=== PATIENT | female | born 1935 | race Two or more races ===

== ENCOUNTER 2017-08-10 21:04 | Inpatient (IN) | payer MEDICAID, MEDICARE ==
[~2017-08-10] VITALS: Ht 157.5 cm; Wt 57.6 kg
--- NOTE | 2017-08-10 21:06 | NUR ---
PT BIBA#81 FROM [facility] FOR AGITATION AND PER FAMILY MORE ALTERED THAN NORMAL. PT EYES OPEN, NONVERBAL. PT CONNECTED TO VENT WITH PRESCRIBED SETTINGS: AC 12 TV 550 FI02 30% PEEP 5. NO SOB NOTED. NAD NOTED. NO NVD AT THIS TIME. PT GOWNED AND PLACED ON MONITOR. PT NOTED WITH GTUBE INTACT AND PATENT. NO S/S INFECTION OR INFILTRATION NOTED. NO RESIDUAL NOTED. WOUNDS NOTED TO DICK POST KNEE. DR. WOMACK AT BEDSIDE FOR EVAL.
[2017-08-10] MEDS ORDERED: IV NS 0.9% 1,000 ML BAG IV ONE ×2 (21:30→22:30)
--- NOTE | 2017-08-10 21:42 | NUR ---
LAB AT BEDSIDE FOR BLOOD DRAW
[2017-08-10 21:46] LABS: BASOPHILS # (AUTO) 0.1 /CMM (0.0-0.2); BASOPHILS % (AUTO) 0.8 % (0.0-2.0); EOSINOPHILS # (AUTO) 0.2 /CMM (0.0-0.7); EOSINOPHILS % (AUTO) 2.3 % (0.0-6.0); HEMATOCRIT 32 % (33-45); HEMOGLOBIN 10.6 g/dL (11.5-14.8); LYMPHOCYTES # (AUTO) 3.7 /CMM (0.8-4.8); LYMPHOCYTES % (AUTO) 35.6 % (20.0-44.0); MEAN CORPUSCULAR HEMOGLOBIN 31 PG (26.0-33.0); MEAN CORPUSCULAR HGB CONC 33 g/dl (31.0-36.0); MEAN CORPUSCULAR VOLUME 93 fL (82-100); MONOCYTES # (AUTO) 0.6 /CMM (0.1-1.30); MONOCYTES % (AUTO) 6.2 % (2.0-12.0); NEUTROPHILS # (AUTO) 5.7 /CMM (1.8-8.9); NEUTROPHILS % (AUTO) 55.1 % (43.0-81.0); PLATELET COUNT (AUTO) 363 /CMM (150-450); RDW COEFFICIENT OF VARIATION 15.4 (11.5-15.0); RED BLOOD CELL COUNT(AUTO) 3.44 MIL/uL (4.0-5.2); WHITE BLOOD COUNT (AUTO) 10.3 K/uL (4.3-11.0)
--- NOTE | 2017-08-10 21:49 | NUR ---
RADIOLOGY AT BEDSIDE FOR CXR
--- NOTE | 2017-08-10 21:50 | NUR ---
FAMILY AT BEDSIDE
[2017-08-10 21:54] LABS: APPEARANCE,URINE CLEAR (CLEAR); BILIRUBIN,URINE NEGATIVE (NEGATIVE); BLOOD, URINE NEGATIVE Ery/uL (NEGATIVE); COLOR,URINE YELLOW (YELLOW); KETONES,URINE NEGATIVE (NEGATIVE); LEUKOCYTE ESTERASE ,URINE TRACE (NEGATIVE); NITRITE, URINE NEGATIVE (NEGATIVE); PROTEIN,URINE NEGATIVE (NEGATIVE); UGLUCOSE NEGATIVE (NEGATIVE); UROBILINOGEN,URINE 0.2 EU/dL (0.2)
--- NOTE | 2017-08-10 22:05 | NUR ---
CALLED [facility] RUDOLPH PAUL STATES "PER DAUGHTER CALLED 911, PT ON SEROQUEL ROUTINE, PT WAS STABLE THROUGHOUT IRMA, AT 8:40PM AND BEGAN TO REMOVE GOWN. PRN ATIVAN 0.5 MG GT GIVEN AT 6:30PM PER SNF, DAUGHTER REFUSED SEROQUEL AND SIGNED AMA"
[2017-08-10 22:12] LABS: ALANINE AMINOTRANSFERASE 28 U/L (12-78); ALBUMIN 2.9 g/dL (3.4-5.0); ALKALINE PHOSPHATASE 146 U/L (46-116); ASPARTATE AMINOTRANSFERASE 20 U/L (15-37); BILIRUBIN,DIRECT 0.1 mg/dL (0.0-0.2); BILIRUBIN,TOTAL 0.2 mg/dL (0.2-1.0); CALCIUM, SERUM 9.8 mg/dL (8.5-10.1); CARBON DIOXIDE 30 mmol/L (21-32); CHLORIDE 102 mmol/L (98-107); CREATININE 0.6 mg/dL (0.6-1.3); GLUCOSE 109 mg/dL (74-106); POTASSIUM 3.8 mmol/L (3.5-5.1); SODIUM SERUM 139 mmol/L (136-145); TOTAL PROTEIN, SERUM 8.6 g/dL (6.4-8.2); UREA NITROGEN, BLOOD 16 mg/dL (7-18)
[2017-08-10 22:14] LABS: TROPONIN I < 0.017 ng/mL (0.00-0.056)
[2017-08-10] MEDS ORDERED: ACETAMINOPHEN 650 MG/20.3 ML UDC PO ONE (22:30)
[2017-08-10 22:32] LABS: INR 1.02 (0.87-1.13)
[2017-08-10] MEDS ORDERED: ACETAMINOPHEN 650 MG/20.3 ML UDC ONE (22:39)
[2017-08-10 22:49] LABS: BACTERIA,URINE None seen /HPF (None Seen); RBC,URINE NONE SEEN /HPF (0-2); SQUAMOUS EPITHELIAL CELL,UR Rare /HPF (None Seen); WBC,URINE 0-2 /HPF (0-3)
[2017-08-10 23:11] VITALS: BP 75/52
--- NOTE | 2017-08-10 23:32 | NUR ---
DR. BRAND AT BEDSIDE SPEAKING TO PT FMAILY REGARDING RESULTS
[2017-08-10] MEDS ORDERED: QUETIAPINE FUMARATE 25 MG TABLET ONE (23:55)
[2017-08-11] VITALS (7 sets, daily range): BP systolic 115–149; BP diastolic 28–93
[2017-08-11] MEDS ORDERED: QUETIAPINE FUMARATE 100 MG TABLET GT SCH
--- NOTE | 2017-08-11 00:04 | NUR ---
RECTAL TEMP NOTED 98.9. AWARE
--- NOTE | 2017-08-11 00:05 | NUR ---
PT ASSIGNED TO 103 T
--- NOTE | 2017-08-11 00:29 | NUR ---
REPORT GIVEN TO RUDOLPH MANCINI FOR ESDRAS.
[2017-08-11] MEDS ORDERED: ONDANSETRON HCL/PF 4 MG/2 ML VIAL IVP PRN (00:30)
[2017-08-11] MEDS ORDERED: Z GUARD REMEDY 2 OZ OINT TP PRN (00:30)
[2017-08-11] MEDS ORDERED: MAGNESIUM HYDROXIDE 30 ML UDC PO PRN (00:30)
[2017-08-11] MEDS ORDERED: LEVO25TA7 GT (00:33)
[2017-08-11] MEDS ORDERED: SIME80TA15 GT (00:33)
[2017-08-11] MEDS ORDERED: FURO20TA4 GT (00:33)
[2017-08-11] MEDS ORDERED: NITR0.4T48 SL (00:33)
[2017-08-11] MEDS ORDERED: ONDA4TAB5 GT (00:33)
[2017-08-11] MEDS ORDERED: ASPI-605 GT (00:33)
[2017-08-11] MEDS ORDERED: NYST5ORA PO (00:33)
--- NOTE | 2017-08-11 00:49 | NUR ---
PT TRANSFERRED PER [facility]S PROT[employer]OL.
--- NOTE | 2017-08-11 01:00 | NUR ---
RN OPENING NOTES RECEIVED PATIENT FORM ER. PATIENT IS ON VENTILATOR, NON VERBAL. DAUGHTER PRESENT AT BEDSIDE. PATIENT IS RESTLESS AND AGITATED. VS STABLE. RESPIRATIONS EVEN AND UNLABORED. NO SOB NOTED. BS X4. IV ACCESS ON LEFT FA PATENT AND INTACT, NO REDNESS OR INFILTRATION NOTED.WAITING FOR MD ORDERS. BED IN LOW AND LOCKED POSITION, SIDE RAILS X2. CALL LIGHT WITHIN EASY REACH. WILL CONTINUE TO MONITOR AND ASSESS DURING THE SHIFT.
--- NOTE | 2017-08-11 01:35 | NUR ---
RT NOTE PATIENT RECEIVED IN STABLE CONDITION ON MECHANICAL VENT. PATIENT IS TOLERATING CURRENT SETTINGS WITHOUT RESPIRATORY DISTRESS NOTED. TRACH IS PATENT AND SECURE. MECHANICAL VENT IS PLUGGED INTO RED OUTLET. ALARMS ARE SET AND AUDIBLE. AMBU BAG AND BACK UP TRACH ARE AT PATIENT BEDSIDE. WILL CONTINUE TO MONITOR. Addendum: 08/11/17 at 0600 by DANG JURADO RT Amended: Links added.
--- NOTE | 2017-08-11 02:00 | NUR ---
RN NOTES PATIENT IS RESTLESS AND AGITATED. CALLED TIAT BOND AND OBTAINED AN ORDER OF ATIVAN 0.5 MG IV Q6 HRS PRN. WILL CONTINUE TO MONITOR.
[2017-08-11] MEDS: LORAZEPAM INJ 2 MG/ML VIAL IV PRN ×2 (02:22→10:56)
[2017-08-11] MEDS ORDERED: LORAZEPAM INJ 2 MG/ML VIAL IV ONE (04:00)
[2017-08-11] MEDS ORDERED: FIBERSOURCE HN 1,000 ML BOTTLE GT PRN (04:00)
[2017-08-11 06:20] LABS: BASOPHILS % (AUTO) 0.3 % (0.0-2.0); EOSINOPHILS # (AUTO) 0.2 /CMM (0.0-0.7); EOSINOPHILS % (AUTO) 1.6 % (0.0-6.0); HEMATOCRIT 29 % (33-45); HEMOGLOBIN 9.7 g/dL (11.5-14.8); LYMPHOCYTES # (AUTO) 2.2 /CMM (0.8-4.8); LYMPHOCYTES % (AUTO) 21.4 % (20.0-44.0); MEAN CORPUSCULAR HEMOGLOBIN 32 PG (26.0-33.0); MEAN CORPUSCULAR HGB CONC 34 g/dl (31.0-36.0); MEAN CORPUSCULAR VOLUME 94 fL (82-100); MONOCYTES # (AUTO) 0.6 /CMM (0.1-1.30); NEUTROPHILS # (AUTO) 7.3 /CMM (1.8-8.9); NEUTROPHILS % (AUTO) 70.7 % (43.0-81.0); PLATELET COUNT (AUTO) 313 /CMM (150-450); RDW COEFFICIENT OF VARIATION 15.9 (11.5-15.0); RED BLOOD CELL COUNT(AUTO) 3.06 MIL/uL (4.0-5.2); WHITE BLOOD COUNT (AUTO) 10.3 K/uL (4.3-11.0)
[2017-08-11 06:35] LABS: CALCIUM, SERUM 8.6 mg/dL (8.5-10.1); CARBON DIOXIDE 25 mmol/L (21-32); CHLORIDE 107 mmol/L (98-107); CREATININE 0.6 mg/dL (0.6-1.3); GLUCOSE 90 mg/dL (74-106); MAGNESIUM 1.9 mg/dL (1.8-2.4); PHOSPHORUS 3.1 mg/dL (2.5-4.9); POTASSIUM 3.3 mmol/L (3.5-5.1); SODIUM SERUM 143 mmol/L (136-145); UREA NITROGEN, BLOOD 12 mg/dL (7-18)
[2017-08-11 06:48] LABS: CHOLESTEROL 133 mg/dL (<200); HDL CHOLESTEROL 35 mg/dL (40-60); LDL 79 mg/dL (0-99); THYROID STIMULATING HORMONE 0.797 uIU/mL (0.358-3.74); TRIGLYCERIDES 159 mg/dL (30-150)
--- NOTE | 2017-08-11 07:30 | NUR ---
LIMNOLOGY TEACHER AM NOTES PATIENT IN BED, NON VERBAL, DAUGHTER PRESENT AT BEDSIDE . TRACH TO MECHANICAL VENT, SETTING S ORDERED, WELL TOLERATED, RESPIRATIONS EVEN AND UNLABORED. NO SOB NOTED. TELEMETRY READS SR HR 99, NO SIGNS OF PAIN OR DISCOMFORT, LFA G 18 IV ACCESS ON LEFT FA, FLUSHES WELL, SITE CLEAR, FIBERSOURCE FEEDING RUNNING AT 40 ML/HR, 0 RESIDUAL, SEE NURSING FLOWSHEET FOR SKIN ISSUES, PATIENT IS ON RESTRAINT TO BOTH WRIST BUT REMOVED BY DAUGHTER AT THIS TIME, BED IN LOW AND LOCKED POSITION, SIDE RAILS X2. CALL LIGHT WITHIN EASY REACH. WILL CONTINUE TO MONITOR.
--- NOTE | 2017-08-11 07:30 | NUR ---
RN CLOSING NOTES PATIENT IS IN BED, DAUGHTER PRESENT AT BEDSIDE . PATIENT IS ON VENTILATOR, VS STABLE. RESPIRATIONS EVEN AND UNLABORED. NO SOB NOTED. IV ACCESS ON LEFT FA PATENT AND INTACT, NO REDNESS OR INFILTRATION NOTED. FIBERSOURCE FEEDING RUNNING AT 40 ML/HR. BED IN LOW AND LOCKED POSITION, SIDE RAILS X2. CALL LIGHT WITHIN EASY REACH. WILL ENDORSE TO RN DAY SHIFT FOR ESDRAS.
[2017-08-11] MEDS ORDERED: LANS30CA54 GT (07:56)
[2017-08-11] MEDS ORDERED: DEXT15DR6 EACHEYE (07:56)
[2017-08-11] MEDS ORDERED: ENOX60DI SQ (07:56)
[2017-08-11] MEDS ORDERED: LACT-96 GT (07:56)
[2017-08-11] MEDS ORDERED: BUSP10TA35 GT (07:56)
[2017-08-11] MEDS ORDERED: LORA0.5T GT (07:56)
[2017-08-11] MEDS ORDERED: ENOXAPARIN SODIUM 40 MG/0.4 ML DISP.SYRIN SQ SCH (09:00)
--- NOTE | 2017-08-11 09:16 | NUR ---
RN "ISRAEL" WILL CALL BACK WHEN PT READY.
--- NOTE | 2017-08-11 09:30 | NUR ---
MS RN NOTES DUE MEDS GIVEN
--- NOTE | 2017-08-11 10:00 | NUR ---
MS RN NOTES ACCOMPANIED PATIENT TO CT SCAN.
--- NOTE | 2017-08-11 10:31 | NUR ---
SUPERVISOR ROLLER SHOP NOTES PATIENT PLACED ON TELEMETRY. SINUS RHYTHM HR 99.
[2017-08-11] MEDS ORDERED: NITROGLYCERIN 0.4 MG/TAB BOTTLE SL PRN (11:30)
[2017-08-11] MEDS ORDERED: LORAZEPAM 0.5 MG TABLET GT PRN (11:30)
[2017-08-11] MEDS: busPIRone 5 MG TABLET GT SCH ×2 (12:34→17:38)
[2017-08-11] MEDS: NYSTATIN (PYXIS) 500,000 UNIT/5 ML ORAL.SUSP PO SCH ×3 (12:34→20:13)
[2017-08-11] MEDS: clonazePAM 1 MG TABLET PO SCH ×2 (15:01→17:38)
--- NOTE | 2017-08-11 17:40 | NUR ---
RT NOTE: PATIENT RECEIVED WITH TRACH ON LTV VENT. ALARMS VERIFIED AND AUDIBLE. SUCTIONED AND LAVAGED MODERATE AMOUNT OF THICK [place] SECRETIONS. VENT PLUGGED INTO RED OUTLET. AMBU BAG AT HOB
--- NOTE | 2017-08-11 18:49 | NUR ---
BED CONTROL SPECIALIST CLOSING NOTES PATIENT IN BED, NON VERBAL, DAUGHTER PRESENT AT BEDSIDE . SHILEY 8 TRACH TO MECHANICAL VENT, SETTING S ORDERED, WELL TOLERATED, RESPIRATIONS EVEN AND UNLABORED. NO SOB NOTED. TELEMETRY READS SR HR 88, NO SIGNS OF PAIN OR DISCOMFORT, LFA G 18 IV ACCESS ON LEFT FA, FLUSHES WELL, SITE CLEAR, FIBERSOURCE FEEDING RUNNING AT 55 ML/HR, 0 RESIDUAL, PATIENT IS ON RESTRAINT TO BOTH WRIST BUT REMOVED BY DAUGHTER AT THIS TIME, BED IN LOW AND LOCKED POSITION, SIDE RAILS X2. CALL LIGHT WITHIN EASY REACH. ALL NEEDS MET, TURNED AND REPOSITIONED Q 2HOURS. DAUGHTER REFUSED PM CARE. NO OTHER SIGNIFICANT CHANGE IN CONDITION. WILL ENDORSE TO NEXT SHIFT FOR ESDRAS.
--- NOTE | 2017-08-11 19:35 | NUR ---
TOPOGRAPHICAL FIELD ASSISTANT INITIAL NOTES PT IS IN BED NON VERBAL WITH DAUGHTER AT BEDSIDE.PT IS ON TRACH TOLERATING VENT SETTINGS WELL. NO SIGNS OF SOB OR DISTRESS. NO SIGNS OF PAIN OR DISCOMFORT AT THIS TIME. G-TUBE IS INTACT WITH FIBERSOURCE AT 55ML/HR. NO RESIDUAL NOTES AT THIS TIME. PT HAS BILATERAL RESTRAINTS BUT CURRENTLY REMOVED DUE TO DAUGHTER AT BEDSIDE. BED IS IN LOW AND LOCKED POSITION, CALL LIGHT WITHIN REACH. WILL CONTINUE TO MONITOR PT
--- NOTE | 2017-08-11 20:03 | NUR ---
PATIENT RECEIVED WITH TRACH ON LTV VENT. ALARMS VERIFIED AND AUDIBLE. SUCTIONED AND LAVAGED MODERATE AMOUNT OF THICK [place]ER[place]T SECRETIONS. VENT PLUGGED INTO RED OUTLET. AMBU BAG AT HOB Addendum: 08/11/17 at 2002 by SAVANNAH MAYORGA RT Amended: Links added.
[2017-08-11] MEDS ORDERED: ENOXAPARIN SODIUM 60 MG/0.6 ML DISP.SYRIN SQ SCH (21:00)
[2017-08-11] MEDS: QUETIAPINE FUMARATE 100 MG TABLET PO SCH (22:31)
[2017-08-11] MEDS: MAG HYDROX/AL HYDROX/SIMETH 30 ML UDC PO PRN (22:33)
[2017-08-11] MEDS: ACETAMINOPHEN 325 MG TABLET PO PRN (22:41)
[2017-08-12] VITALS (9 sets, daily range): BP systolic 110–131; BP diastolic 50–71
[2017-08-12] MEDS: FIBERSOURCE HN 1,000 ML BOTTLE GT PRN (03:45)
[2017-08-12] MEDS: LEVOTHYROXINE SODIUM 25 MCG TABLET GT SCH (05:08)
[2017-08-12] MEDS: ACETAMINOPHEN 325 MG TABLET PO PRN (05:15)
--- NOTE | 2017-08-12 06:15 | NUR ---
DIRECTORY CLERK CLOSING NOTES PT IS IN BED RESTING, PT DOES GET ANXIOUS AT TIMES. RESTRAINTS ARE OFF AT THIS TIME. PT IS SLEEPING. [facility] TOLERATING WELL. GTUBE FEEDING IS RUNNING AT 55 ML/HR. BULLARD CATHETER IS INTACT WITH 200 ML DRAINED. BED IS IN LOW AND LOCKED POSITION, WILL ENDORSE TO DAYSHIFT
--- NOTE | 2017-08-12 07:30 | NUR ---
CRNP AM NOTES PATIENT IN BED, NON VERBAL, DAUGHTER PRESENT AT BEDSIDE . SHILEY 8 TRACH TO MECHANICAL VENT, SETTINGS ORDERED, WELL TOLERATED, RESPIRATIONS EVEN AND UNLABORED. NO SOB NOTED. TELEMETRY READS SR HR 91, NO SIGNS OF PAIN OR DISCOMFORT, LFA G 18 IV ACCESS ON LEFT FA, FLUSHES WELL, SITE CLEAR, FIBERSOURCE FEEDING RUNNING AT 55 ML/HR, 0 RESIDUAL, PATIENT APPEARS CALM AT THIS TIME, BED IN LOW AND LOCKED POSITION, SIDE RAILS X2. CALL LIGHT WITHIN EASY REACH. ALL NEEDS ANTICIPATED, WILL TURN AND REPOSITION Q 2HOURS. WILL CONTINUE TO MONITOR.
[2017-08-12] MEDS: busPIRone 5 MG TABLET GT SCH ×3 (09:21→16:32)
[2017-08-12] MEDS: ASPIRIN EC 81 MG TABLET.DR PO SCH (09:21)
[2017-08-12] MEDS: clonazePAM 1 MG TABLET PO SCH ×2 (09:21→13:09)
[2017-08-12] MEDS: FUROSEMIDE 20 MG TABLET GT SCH (09:21)
[2017-08-12] MEDS: NYSTATIN (PYXIS) 500,000 UNIT/5 ML ORAL.SUSP PO SCH ×4 (09:21→21:02)
[2017-08-12] MEDS: ENOXAPARIN SODIUM 40 MG/0.4 ML DISP.SYRIN SQ SCH (09:22)
--- NOTE | 2017-08-12 09:30 | NUR ---
GERIATRIC PSYCHIATRIST NOTES DUE MEDS GIVEN.
--- NOTE | 2017-08-12 11:45 | NUR ---
WOUND CARE CONSULT: PT FOLLOWED BY SURGICAL TEAM FOR WOUND CARE. DEFER TO SURGICAL TEAM FOR WOUND TREATMENT PLAN. FIRST STEP MATTRESS ORDERED. ALL SKIN PROTECTION MEASURES IN PLACE AND DISCUSSED WITH NURSING STAFF. MD IN AGREEMENT WITH PLAN OF CARE.
--- NOTE | 2017-08-12 16:10 | NUR ---
RUBY DEVELOPER NOTES DR. JENNIFER YOUNG NOTIFIED ABOUT BLOOD TINGED URINE IN BULLARD CATH. ALSO PER DAUGHTER PT C/O ABDOMINAL PAIN.
--- NOTE | 2017-08-12 16:30 | NUR ---
WARP KNITTER NOTES PER DR JENNIFER YOUNG TO GIVE MORPHINE 1 MG Q3 HOURS PRN, NO OTHER NEW ORDERS.
[2017-08-12] MEDS: HYDROMORPHONE INJ 0.5 MG/0.5 ML SYRINGE IV PRN ×2 (16:48→20:59)
--- NOTE | 2017-08-12 18:30 | NUR ---
MEN'S GARMENT FITTER CLOSING NOTES PATIENT IN BED, NON VERBAL, DAUGHTER PRESENT AT BEDSIDE . SHILEY 8 TRACH TO MECHANICAL VENT, SETTING S ORDERED, WELL TOLERATED, RESPIRATIONS EVEN AND UNLABORED. NO SOB NOTED. TELEMETRY READS SR HR 90, NO SIGNS OF PAIN OR DISCOMFORT, LFA G 18 IV ACCESS, FLUSHES WELL, SITE CLEAR,FIBERSOURCE FEEDING RUNNING AT 55 ML/HR, 0 RESIDUAL, PATIENT APPEARS CALM AT THIS TIME, BED IN LOW AND LOCKED POSITION, SIDE RAILS X2. CALL LIGHT WITHIN EASY REACH. ALL NEEDS MET, TURNED AND REPOSITIONED Q 2HOURS. PM CARE DONE. NO OTHER SIGNIFICANT CHANGE IN CONDITION. WILL ENDORSE TO NEXT SHIFT FOR ESDRAS.
--- NOTE | 2017-08-12 19:30 | NUR ---
RN INITIAL NOTES RECEIVED PT AWAKE ON BED, NON-VERBAL, ABLE TO FOLLOW SIMPLE COMMANDS. DAUGHTER IS AT BEDSIDE. ON VENT WITH SETTINGS AC 12, TV 550, FIO2 30%, PEEP 5, SHILEY 8, SATURATING WELL, NO S/S OF RESP DISTRESS. CURRENTLY SR ON THE MONITOR, HR 80'S. ON GTUBE FEEDING OF FIBERSOURCE @ 55MLS/HR, NO RESIDUALS. BULLARD CATH INTACT, HEMATURIA NOTED, MD AWARE PER DAY RN. LEFT FOREARM 18G FLUSHED AND PATENT, NO S/S OF INFILTRATION/INFECTION, DRESSING CDI. BED LOW AND LOCKED, SIDERAILS UP, CALL LIGHT WITHIN REACH, BED ALARM ON. WILL CONTINUE TO MONITOR
[2017-08-12] MEDS: QUETIAPINE FUMARATE 100 MG TABLET PO SCH (21:02)
[2017-08-12] MEDS: clonazePAM 1 MG TABLET GT SCH (21:02)
[2017-08-13] VITALS: BP 127/53
[2017-08-13] MEDS: FIBERSOURCE HN 1,000 ML BOTTLE GT PRN (00:23)
[2017-08-13] MEDS: HYDROMORPHONE INJ 0.5 MG/0.5 ML SYRINGE IV PRN ×2 (00:23→15:33)
--- NOTE | 2017-08-13 03:48 | NUR ---
RT Pt trach on [facility] vent on ordered settings. no resp distress noted during the shift. sx prn. trach secure and patent. Addendum: 08/13/17 at 0349 by REFUGIO BARRETT RT Amended: Links added.
[2017-08-13 04:00] VITALS: BP 124/54
[2017-08-13] MEDS: LEVOTHYROXINE SODIUM 25 MCG TABLET GT SCH (05:12)
[2017-08-13] MEDS: clonazePAM 1 MG TABLET GT SCH ×3 (05:12→22:00)
--- NOTE | 2017-08-13 06:20 | NUR ---
RN CLOSING NOTES PT REMAINS STABLE OF THE MOMENT. ALL DUE MEDS GIVEN, AM CARE PROVIDED. WILL ENDORSE ESDRAS TO AM RN
[2017-08-13 06:27] LABS: BASOPHILS % (AUTO) 0.4 % (0.0-2.0); EOSINOPHILS # (AUTO) 0.3 /CMM (0.0-0.7); EOSINOPHILS % (AUTO) 3.3 % (0.0-6.0); HEMATOCRIT 26 % (33-45); HEMOGLOBIN 8.9 g/dL (11.5-14.8); LYMPHOCYTES # (AUTO) 2.7 /CMM (0.8-4.8); LYMPHOCYTES % (AUTO) 30.5 % (20.0-44.0); MEAN CORPUSCULAR HEMOGLOBIN 32 PG (26.0-33.0); MEAN CORPUSCULAR HGB CONC 34 g/dl (31.0-36.0); MEAN CORPUSCULAR VOLUME 95 fL (82-100); MONOCYTES # (AUTO) 0.7 /CMM (0.1-1.30); MONOCYTES % (AUTO) 7.5 % (2.0-12.0); NEUTROPHILS # (AUTO) 5.1 /CMM (1.8-8.9); NEUTROPHILS % (AUTO) 58.3 % (43.0-81.0); PLATELET COUNT (AUTO) 251 /CMM (150-450); RDW COEFFICIENT OF VARIATION 15.9 (11.5-15.0); RED BLOOD CELL COUNT(AUTO) 2.78 MIL/uL (4.0-5.2); WHITE BLOOD COUNT (AUTO) 8.7 K/uL (4.3-11.0)
[2017-08-13 06:56] LABS: CALCIUM, SERUM 8.3 mg/dL (8.5-10.1); CARBON DIOXIDE 29 mmol/L (21-32); CHLORIDE 106 mmol/L (98-107); CREATININE 0.6 mg/dL (0.6-1.3); GLUCOSE 127 mg/dL (74-106); POTASSIUM 4.1 mmol/L (3.5-5.1); SODIUM SERUM 141 mmol/L (136-145); UREA NITROGEN, BLOOD 20 mg/dL (7-18)
[2017-08-13 08:00] VITALS: BP 132/65
--- NOTE | 2017-08-13 08:35 | NUR ---
PLACED PT ON SIMV MODE AD ORDERED BY DR RIOJAS. PT JAVIER WELL AT THIS TIME. PT ANXIOUS RN AWARE. PT DOES NOT HAVE SOB/RESP DISTRESS . JAVIER SIMV MODE WELL. WILL CONTINUE TO MONITOR. Addendum: 08/13/17 at 1637 by DOMINGO PATTERSON RT Amended: Links added.
[2017-08-13] MEDS: busPIRone 5 MG TABLET GT SCH ×3 (08:38→17:20)
[2017-08-13] MEDS: ASPIRIN EC 81 MG TABLET.DR PO SCH (08:38)
[2017-08-13] MEDS: FUROSEMIDE 20 MG TABLET GT SCH (08:38)
[2017-08-13] MEDS: NYSTATIN (PYXIS) 500,000 UNIT/5 ML ORAL.SUSP PO SCH ×4 (08:38→21:59)
[2017-08-13] MEDS: ENOXAPARIN SODIUM 40 MG/0.4 ML DISP.SYRIN SQ SCH (08:45)
--- NOTE | 2017-08-13 09:57 | NUR ---
RN INITIAL NOTES RECEIVED PT AWAKE ON BED, NON-VERBAL, ABLE TO FOLLOW SIMPLE COMMANDS. PT ON VENT WITH SETTINGS AC 12, TV 550, FIO2 30%, PEEP 5, SHILEY 8, SATURATING WELL IN AM , PT NOW ON BIPAP , NO S/S OF RESP DISTRESS. CURRENTLY SR ON THE MONITOR, HR 80'S. ON GTUBE FEEDING FIBERSOURCE @ 55MLS/HR, NO RESIDUALS. BULLARD CATH INTACT, LEFT FOREARM 18G FLUSHED AND PATENT, NO S/S OF INFILTRATION/INFECTION, DRESSING CDI. BED LOW AND LOCKED, SIDERAILS UP, CALL LIGHT WITHIN REACH, BED ALARM ON. RN WILL CONTINUE TO MONITOR THROUGH OUT THE DAY
--- NOTE | 2017-08-13 10:00 | NUR ---
VENT CHANGES MADE. PLACED PT ON CPAP MODE ORDERED BY DR RIOJAS. PT JAVIER WELL AT THIS TIME. NOTIFIED RN OF CHANGES. WILL DO ABG TO F/U ORDERED BY . WILL CONTINUE TO MONITOR. Addendum: 08/13/17 at 1637 by DOMINGO PATTERSON RT Amended: Links added.
[2017-08-13 11:38] LABS: ABG BASE EXCESS 4.2 mmol/L; ABG PCO2 41.9 mmHg (35.0-45.0); ABG PH 7.452 (7.350-7.450); ABG PO2 67.5 mmHg (75.0-100.0); AaDO2 97.2 mmHg; COHb 0.2 % (0.5-1.5); MetHb 0.2 % (0.0-1.5); O2Hb 92.6 % (94.0-97.0); SITE, ABG Right Radial
[2017-08-13 12:00] VITALS: BP 153/77
[2017-08-13] MEDS: SIMETHICONE 80 MG TAB.CHEW GT PRN ×2 (12:06→22:00)
[2017-08-13] MEDS: ACETAMINOPHEN 325 MG TABLET PO PRN ×2 (12:07→22:00)
--- NOTE | 2017-08-13 12:20 | NUR ---
VENT CHANGES MADE. PLACED PT BACK ON SIMV MODE ORDERED BY DR RIOJAS. PT JAVIER WELL AT THIS TIME. NOTIFIED RN OF CHANGES. WILL CONTINUE TO MONITOR. Addendum: 08/13/17 at 1637 by DOMINGO PATTERSON RT Amended: Links added.
[2017-08-13 16:00] VITALS: BP 152/84
--- NOTE | 2017-08-13 16:29 | NUR ---
RECEIVED PT TRACHED ON MECHANICAL VENTILATOR ON NOTED SETTINGS PER MD. VENT PLUGGED INTO RED OUTLET. AMBU BAG AT BEDSIDE. ALARMS ARE SET AND AUDIBLE. PT BREATH SOUNDS BILATERAL COARSE. TRACH SUCTIONED MODERATE THICK YELLOW SECRETIONS , VENT CHANGES MADE THROUGH OUT SHIFT NOTED. WILL CONTINUE TO MONITOR PT. Addendum: 08/13/17 at 1631 by DOMINGO PATTERSON RT Amended: Links added.
--- NOTE | 2017-08-13 19:00 | NUR ---
SUPERVISOR ESTIMATOR AND DRAFTER CLOSING NOTES PATIENT IN BED, NON VERBAL, HOWEVER ABLE TO MAKE NEEDS KNOWN , PT DAUGHTER PRESENT AT BEDSIDE STAYING THE NIGHT. PT SHILEY 8 TRACH TO MECHANICAL VENT SIMV MODE, SETTING S ORDERED, WELL TOLERATED, RESPIRATIONS EVEN AND UNLABORED. NO SOB NOTED. TELEMETRY READS SR NO SIGNS OF PAIN OR DISCOMFORT, LFA G 18 IV ACCESS, FLUSHES WELL, SITE CLEAR,FIBERSOURCE FEEDING OH HOLD DUE TO PATIENT STATING STOMACH DUE TO GAS MULTIPLE BM NOTED PATIENT DAUGHTER STATED THE PATIENT WAS CONSTIPATED YESTERDAY. 0 RESIDUAL, PATIENT APPEARS CALM AT THIS TIME, BED IN LOW AND LOCKED POSITION, SIDE RAILS X2. CALL LIGHT WITHIN EASY REACH. ALL NEEDS MET, PT TURNED AND REPOSITIONED Q 2HOURS. AM CARE COMPLETED . NO CHANGE IN CONDITION THROUGHOUT THE SHIFT.RN WILL ENDORSE TO PM SHIFT FOR CONTINUATION OF CARE.
[2017-08-13 20:00] VITALS: BP 131/48
--- NOTE | 2017-08-13 20:00 | NUR ---
RN INITIAL NOTES PATIENT IN BED, NON VERBAL, HOWEVER ABLE TO MAKE NEEDS KNOWN , PT DAUGHTER PRESENT AT BEDSIDE STAYING THE NIGHT. PT SHILEY 8 TRACH TO MECHANICAL VENT SIMV MODE, SETTING S ORDERED, WELL TOLERATED, RESPIRATIONS EVEN AND UNLABORED. NO SOB NOTED. TELEMETRY READS SR NO SIGNS OF PAIN OR DISCOMFORT, LFA G 18 IV ACCESS, FLUSHES WELL, SITE CLEAR,FIBERSOURCE FEEDING OH HOLD. 0 RESIDUAL, PATIENT APPEARS CALM AT THIS TIME, BED IN LOW AND LOCKED POSITION, SIDE RAILS X2. CALL LIGHT WITHIN REACH. WILL CONT TO MONITOR FOR.
[2017-08-13] MEDS: QUETIAPINE FUMARATE 100 MG TABLET PO SCH (22:00)
[2017-08-14] VITALS: BP 124/51
[2017-08-14] MEDS: HYDROCODONE/APAP 5/325MG 1 EACH TABLET PO PRN ×3 (01:33→15:01)
[2017-08-14 04:00] VITALS: BP 120/59
[2017-08-14] MEDS: LEVOTHYROXINE SODIUM 25 MCG TABLET GT SCH (05:24)
[2017-08-14] MEDS: clonazePAM 1 MG TABLET GT SCH ×3 (05:24→21:22)
[2017-08-14] MEDS: FIBERSOURCE HN 1,000 ML BOTTLE GT PRN (05:27)
--- NOTE | 2017-08-14 06:00 | NUR ---
RN CLOSING NOTES PATIENT IN BED, NON VERBAL, HOWEVER ABLE TO MAKE NEEDS KNOWN , PT DAUGHTER PRESENT AT BEDSIDE STAYED THE NIGHT. PT SHILEY 8 TRACH TO MECHANICAL VENT SIMV MODE, SETTING S ORDERED, WELL TOLERATED, RESPIRATIONS EVEN AND UNLABORED. NO SOB NOTED. TELEMETRY READS SR NO SIGNS OF PAIN OR DISCOMFORT, LFA G 18 IV ACCESS, FLUSHES WELL, SITE CLEAR,FIBERSOURCE FEEDING OH HOLD. 0 RESIDUAL, PATIENT APPEARS CALM AT THIS TIME, BED IN LOW AND LOCKED POSITION, SIDE RAILS X2. CALL LIGHT WITHIN REACH. WILL ENDORSE TO AM RN
[2017-08-14 06:51] LABS: BASOPHILS % (AUTO) 0.4 % (0.0-2.0); EOSINOPHILS # (AUTO) 0.3 /CMM (0.0-0.7); EOSINOPHILS % (AUTO) 3.4 % (0.0-6.0); HEMATOCRIT 27 % (33-45); HEMOGLOBIN 9.1 g/dL (11.5-14.8); LYMPHOCYTES # (AUTO) 2.3 /CMM (0.8-4.8); LYMPHOCYTES % (AUTO) 26.7 % (20.0-44.0); MEAN CORPUSCULAR HEMOGLOBIN 32 PG (26.0-33.0); MEAN CORPUSCULAR HGB CONC 34 g/dl (31.0-36.0); MEAN CORPUSCULAR VOLUME 95 fL (82-100); MONOCYTES # (AUTO) 0.6 /CMM (0.1-1.30); MONOCYTES % (AUTO) 6.9 % (2.0-12.0); NEUTROPHILS # (AUTO) 5.5 /CMM (1.8-8.9); NEUTROPHILS % (AUTO) 62.6 % (43.0-81.0); PLATELET COUNT (AUTO) 269 /CMM (150-450); RDW COEFFICIENT OF VARIATION 16.1 (11.5-15.0); RED BLOOD CELL COUNT(AUTO) 2.82 MIL/uL (4.0-5.2); WHITE BLOOD COUNT (AUTO) 8.8 K/uL (4.3-11.0)
[2017-08-14 07:01] LABS: CALCIUM, SERUM 8.8 mg/dL (8.5-10.1); CARBON DIOXIDE 32 mmol/L (21-32); CHLORIDE 103 mmol/L (98-107); CREATININE 0.6 mg/dL (0.6-1.3); GLUCOSE 101 mg/dL (74-106); MAGNESIUM 2.1 mg/dL (1.8-2.4); PHOSPHORUS 4.4 mg/dL (2.5-4.9); POTASSIUM 3.9 mmol/L (3.5-5.1); SODIUM SERUM 139 mmol/L (136-145); UREA NITROGEN, BLOOD 21 mg/dL (7-18)
[2017-08-14 08:00] VITALS: BP 129/58
--- NOTE | 2017-08-14 08:00 | NUR ---
RN INITIAL NOTE PATIENT RECEIVED IN BED, NON VERBAL, HOWEVER ABLE TO MAKE NEEDS KNOWN , PT DAUGHTER PRESENT AT BEDSIDE . PT SHILEY 8 TRACH TO MECHANICAL VENT SIMV MODE, SETTING ORDERED, PT CONTINUES TO TOLERATE WELL, RESPIRATIONS EVEN AND UNLABORED. NO SOB NOTED.RN SUCTIONED PER FAMILY REQUEST. PT REMAINS STABLE RT HAS CAME AND ALSO ASSESSED THE PATIENT THIS AM. TELE- SR NO SIGNS OF PAIN OR DISCOMFORT, LFA G 18 IV ACCESS, FLUSHES WELL, SITE CLEAR,FIBERSOURCE FEEDING OH HOLD. 0 RESIDUAL, PATIENT APPEARS CALM AT THIS TIME, BED IN LOW AND LOCKED POSITION, SIDE RAILS X2. SAFETY MEASURES IN PLACE RN WILL CONTINUE TO MONITOR THROUGHOU THE DAY
[2017-08-14] MEDS: ASPIRIN EC 81 MG TABLET.DR PO SCH (08:20)
[2017-08-14] MEDS: FUROSEMIDE 20 MG TABLET GT SCH (08:20)
[2017-08-14] MEDS: NYSTATIN (PYXIS) 500,000 UNIT/5 ML ORAL.SUSP PO SCH ×4 (08:23→21:22)
[2017-08-14] MEDS: busPIRone 5 MG TABLET GT SCH ×3 (08:23→16:45)
[2017-08-14] MEDS: ENOXAPARIN SODIUM 40 MG/0.4 ML DISP.SYRIN SQ SCH (08:30)
--- NOTE | 2017-08-14 09:00 | NUR ---
RN NOTE UPON ASSESSMENT IT IS NOTED THAT PATIENT HAS NOTED REDNESS AT PREVIOUS IV SITE PT DAUGHTER STATES THAT PM RN REMOVE IV AND APPLIED HEAT , DAYSHIFT RN HAS REMOVED THE HEAT BAD ELEVATED EXTREMITY AND APPLIED ICE BAG
[2017-08-14 12:00] VITALS: BP 129/69
[2017-08-14] MEDS: ACETAMINOPHEN 325 MG TABLET PO PRN ×2 (12:38→19:14)
[2017-08-14] MEDS: MAG HYDROX/AL HYDROX/SIMETH 30 ML UDC PO PRN (15:01)
[2017-08-14 16:00] VITALS: BP 107/78
[2017-08-14] MEDS ORDERED: ALBUTEROL FS 2.5 MG/0.5 ML VIAL.NEB NEB PRN (16:00)
--- NOTE | 2017-08-14 18:17 | NUR ---
RN CLOSING NOTES PT REMAINS STABLE THROUGHOUT THE SHIFT . ALL DUE MEDS GIVEN, AM CARE PROVIDED. PATIENT UNABLE TO MAKE NEEDS KNOWN PATIENT TOLERATED VENT SETTINGS WELL PATIENT REMAINS NPO PATIENT SAFETY MEASURES IN PLACE RN WILL ENDORSE ESDRAS TO PM RN, PATIENT EMS ON WILL CALL PATIENT EXPERIENCING CHEST PAIN AND ABDOMINAL DISCOMFORT THROUGHOUT THE DAY RN CONTACTED MD JENNIFER YOUNG AND AWAITING ORDERS. RN CONTACTED ARUTHER SUPERVISOR INDUSTRIAL GARMENT IN REGARDS TO THE PATIENT DISCHARGE SUPERVISOR INDUSTRIAL GARMENT STATES THAT MD YOUNG OK'D DISCHARGE , PENDING D/C ORDERS , RN NOTIFIED FAMILY AT BEDSIDE
--- NOTE | 2017-08-14 18:19 | NUR ---
RN NOTE RN SPOKE WITH THE FAMILY FAMILY AT BEDSIDE STATES [facility] , PATIENT TO BE D/C IN THE AM
--- NOTE | 2017-08-14 20:00 | NUR ---
RN INITIAL NOTE PATIENT RECEIVED IN BED, NON VERBAL, HOWEVER ABLE TO MAKE NEEDS KNOWN , PT DAUGHTER PRESENT AT BEDSIDE . PT SHILEY 8 TRACH TO MECHANICAL VENT SIMV MODE, SETTING ORDERED, PT CONTINUES TO TOLERATE WELL, RESPIRATIONS EVEN AND UNLABORED. NO SOB NOTED. TELE- SR NO SIGNS OF PAIN OR DISCOMFORT, SITE CLEAR,FIBERSOURCE FEEDING AT 55. 0 RESIDUAL, PATIENT APPEARS CALM AT THIS TIME, BED IN LOW AND LOCKED POSITION, SIDE RAILS X2. SAFETY MEASURES IN PLACE RN WILL CONTINUE TO MONITOR.
[2017-08-14 20:45] VITALS: BP 128/56
--- NOTE | 2017-08-14 20:57 | NUR ---
RN NOTES CHEST AND ABD XRAY ORDERED
[2017-08-14] MEDS: QUETIAPINE FUMARATE 100 MG TABLET PO SCH (21:22)
[2017-08-15] VITALS (7 sets, daily range): BP systolic 97–128; BP diastolic 42–67
[2017-08-15] MEDS: LEVOTHYROXINE SODIUM 25 MCG TABLET GT SCH (05:30)
[2017-08-15] MEDS: clonazePAM 1 MG TABLET GT SCH ×3 (05:31→21:09)
[2017-08-15] MEDS: ACETAMINOPHEN 325 MG TABLET PO PRN ×3 (05:31→21:09)
[2017-08-15] MEDS: SIMETHICONE 80 MG TAB.CHEW GT PRN (05:35)
[2017-08-15] MEDS: FIBERSOURCE HN 1,000 ML BOTTLE GT PRN (05:35)
--- NOTE | 2017-08-15 06:30 | NUR ---
RN CLOSING NOTES PATIENT IN BED, NON VERBAL, HOWEVER ABLE TO MAKE NEEDS KNOWN , PT CAREGIVER PRESENT AT BEDSIDE STAYED THE NIGHT. PT SHILEY 8 TRACH TO MECHANICAL VENT SIMV MODE, SETTING ORDERED, WELL TOLERATED, RESPIRATIONS EVEN AND UNLABORED. NO SOB NOTED. TELEMETRY READS ST 100S, PT HAS NO IV ACCESS, FIBERSOURCE FEEDING AT 55ML/HR 0 RESIDUAL. CHEST AND ABD XRAY ORDERED. PT TO BE DC BACK TO SNF TODAY. ALL PM CARE RENDERED AND ALL MEDICATION GIVEN ORDERED. PATIENT APPEARS CALM AT THIS TIME, BED IN LOW AND LOCKED POSITION, SIDE RAILS X2. CALL LIGHT WITHIN REACH. WILL ENDORSE TO AM RN
[2017-08-15 06:48] LABS: BASOPHILS % (AUTO) 0.3 % (0.0-2.0); EOSINOPHILS # (AUTO) 0.2 /CMM (0.0-0.7); EOSINOPHILS % (AUTO) 2.3 % (0.0-6.0); HEMATOCRIT 29 % (33-45); HEMOGLOBIN 9.8 g/dL (11.5-14.8); LYMPHOCYTES # (AUTO) 2.2 /CMM (0.8-4.8); LYMPHOCYTES % (AUTO) 21.9 % (20.0-44.0); MEAN CORPUSCULAR HEMOGLOBIN 33 PG (26.0-33.0); MEAN CORPUSCULAR HGB CONC 34 g/dl (31.0-36.0); MEAN CORPUSCULAR VOLUME 96 fL (82-100); MONOCYTES # (AUTO) 0.7 /CMM (0.1-1.30); MONOCYTES % (AUTO) 7.2 % (2.0-12.0); NEUTROPHILS # (AUTO) 6.7 /CMM (1.8-8.9); NEUTROPHILS % (AUTO) 68.3 % (43.0-81.0); PLATELET COUNT (AUTO) 298 /CMM (150-450); RDW COEFFICIENT OF VARIATION 16.2 (11.5-15.0); RED BLOOD CELL COUNT(AUTO) 3.01 MIL/uL (4.0-5.2); WHITE BLOOD COUNT (AUTO) 9.8 K/uL (4.3-11.0)
[2017-08-15 07:03] LABS: CALCIUM, SERUM 9.1 mg/dL (8.5-10.1); CARBON DIOXIDE 31 mmol/L (21-32); CHLORIDE 100 mmol/L (98-107); CREATININE 0.7 mg/dL (0.6-1.3); GLUCOSE 146 mg/dL (74-106); PHOSPHORUS 4.2 mg/dL (2.5-4.9); POTASSIUM 4.3 mmol/L (3.5-5.1); SODIUM SERUM 136 mmol/L (136-145)
[2017-08-15 07:23] LABS: UREA NITROGEN, BLOOD 20 mg/dL (7-18)
--- NOTE | 2017-08-15 07:28 | NUR ---
RN OPENING NOTES RECEIVED PATIENT IN BED, NON VERBAL, HOWEVER ABLE TO MAKE NEEDS KNOWN , CAREGIVER PRESENT AT BEDSIDE. PATIENT HAS SHILEY 8 TRACH TO MECHANICAL VENT SIMV MODE, SETTING ORDERED, PATIENT TOLERATED WELL, RESPIRATIONS EVEN AND UNLABORED. NO ACUTE DISTRESS, NO SOB NOTED. TELE- ST 105. NO SIGNS OF PAIN OR DISCOMFORT. GTUBE IN PLACE, FIBERSOURCE FEEDING AT 55, NO RESIDUAL. BULLARD IN PLACE, DRAINING CLEAR YELLOW URINE. PATIENT APPEARS CALM AT THIS TIME, BED IN LOW AND LOCKED POSITION, SIDE RAILS X2. SAFETY MEASURES IN PLACE. WILL CONTINUE TO MONITOR ACCORDINGLY
[2017-08-15] MEDS: FUROSEMIDE 20 MG TABLET GT SCH (09:03)
[2017-08-15] MEDS: busPIRone 5 MG TABLET GT SCH ×3 (09:03→17:43)
[2017-08-15] MEDS: ASPIRIN EC 81 MG TABLET.DR PO SCH (09:03)
[2017-08-15] MEDS: NYSTATIN (PYXIS) 500,000 UNIT/5 ML ORAL.SUSP PO SCH ×4 (09:08→21:09)
[2017-08-15] MEDS: ENOXAPARIN SODIUM 40 MG/0.4 ML DISP.SYRIN SQ SCH (09:16)
--- NOTE | 2017-08-15 18:11 | NUR ---
RN NOTES CALLED [facility] AND SPOKE WITH RUDOLPH BARIROS, STATED "WILL ACCEPT PATIENT BUT FAMILY MUST FOLLOW RULES OF THE FACILITY", AND WANTED TO SPEAK WITH PATIENT'S RESPONSIBLE [place] FIRST BEFORE TRANSPORTING PATIENT TO [facility]. CALLED CON (PATIENT'S DAUGHTER), SHE WANTS TO FIND/LOOK FOR ANOTHER FACILITY. NOTIFIED CASE MANAGEMENT.
--- NOTE | 2017-08-15 19:16 | NUR ---
RN CLOSING NOTES NO SIGNIFICANT CHANGE IN PATIENT'S CONDITION. CAREGIVER AT BEDSIDE. NO ACUTE DISTRESS, NO SOB. NO S/S OF PAIN OR DISCOMFORT. ALL NEEDS ATTENDED AND PROVIDED. KEPT PATIENT SAFE AND COMFORTABLE. BED IN LOW/LOCKED POSITION, SIDERAILS UPX2, CALL LIGHT IN REACH. ENDORSED TO NIGHT RN FOR ESDRAS.
--- NOTE | 2017-08-15 19:36 | NUR ---
Received pt on SIMV mode. Pt trach is secure. Vent is plugged into a red outlet, alarms are set and audible, and BVM is at bedside. Addendum: 08/15/17 at 1937 by LUCY NARANJO RT Amended: Links added.
--- NOTE | 2017-08-15 20:00 | NUR ---
RN INITIAL NOTES PATIENT IN BED, NON VERBAL, HOWEVER ABLE TO MAKE NEEDS KNOWN , PT CAREGIVER PRESENT AT BEDSIDE STAYED THE NIGHT. PT SHILEY 8 TRACH TO MECHANICAL VENT SIMV MODE, SETTING ORDERED, WELL TOLERATED, RESPIRATIONS EVEN AND UNLABORED. NO SOB NOTED. TELEMETRY READS, PT HAS NO IV ACCESS, FIBERSOURCE FEEDING AT 55ML/HR 0 RESIDUAL. PATIENT APPEARS CALM AT THIS TIME, BED IN LOW AND LOCKED POSITION, SIDE RAILS X2. CALL LIGHT WITHIN REACH. WILL CONTINUE TO MONITOR
[2017-08-15] MEDS: QUETIAPINE FUMARATE 100 MG TABLET PO SCH (21:09)
[2017-08-16] VITALS: BP_SYST 138; BP_SYST 88; BP_DIAS 42; BP_DIAS 62
[2017-08-16 04:00] VITALS: BP 119/50
[2017-08-16] MEDS: SIMETHICONE 80 MG TAB.CHEW GT PRN (05:29)
[2017-08-16] MEDS: clonazePAM 1 MG TABLET GT SCH ×3 (05:29→21:14)
[2017-08-16] MEDS: LEVOTHYROXINE SODIUM 25 MCG TABLET GT SCH (05:29)
[2017-08-16] MEDS: ACETAMINOPHEN 325 MG TABLET PO PRN ×3 (05:30→21:14)
--- NOTE | 2017-08-16 07:20 | NUR ---
SALES PERFORMANCE MANAGER NOTE: RECEIVED PATIENT IN BED, ASLEEP, AROUSABLE W/ TACTILE STIMULATION AND WHEN CALLING HER NAME. VENT-TRACH DEPENDENT SATURATING WELL 100%. PATIENT HAS NO IV LINE AND POSSIBLE DISCHARGE TODAY. HOB ELEVATED W/ GT FEEDING OF FIBERSOURCE@55CC/HR TOLERATING WELL. PATIENT REFUSED TO HAVE ANOTHER LINE INSERTED FOR HER. ON IT INSTRUCTOR, SR HR= 96. A FAMILY MEMBER PRESENT AT THE BEDSIDE. BULLARD CATHETER NOTED W/ YELLOW URINE DRAINING TO GRAVITY. BED ALARM AND LOCKED AT ALL TIMES. NEEDS ANTICIPATED.
[2017-08-16 08:00] VITALS: BP 105/48
--- NOTE | 2017-08-16 09:15 | NUR ---
LEAF SUCKER OPERATOR NOTE: CALLED AND SPOKE W/ EVAN FROM [facility] TO F/U W/ FARIDA THE PATIENT'S DISCHARGE BACK TO THE FACILITY. PER EVAN HIS ECONOMICS ANALYST WANTED AN ASSURANCE THAT THE PATIENT'S DAUGHTER, CON IS WILLING TO SEND THE PATIENT BACK TO THEM. 0920 CALLED AND SPOKE W/ CON, DAUGHTER AND MADE HER AWARE THAT THE PATIENT IS READY TO BE DISCHARGE BACK TO THE FACILITY. PER CON, SHE WANTED HER MOTHER TO BE DISCHARGE TO ANOTHER FACILITY. LORENA ARNOLD AND JOSEPH MUSTAFA WERE AWARE.
[2017-08-16] MEDS: FUROSEMIDE 20 MG TABLET GT SCH (09:17)
[2017-08-16] MEDS: ASPIRIN EC 81 MG TABLET.DR PO SCH (09:17)
[2017-08-16] MEDS: busPIRone 5 MG TABLET GT SCH ×3 (09:17→16:38)
[2017-08-16] MEDS: NYSTATIN (PYXIS) 500,000 UNIT/5 ML ORAL.SUSP PO SCH ×4 (09:18→21:13)
[2017-08-16] MEDS: ENOXAPARIN SODIUM 40 MG/0.4 ML DISP.SYRIN SQ SCH (09:19)
--- NOTE | 2017-08-16 09:21 | NUR ---
per haris thompson wanted pt. discharge today,per adelia ok to give report to [place],nurse delmer refused to get report until confirmed with daughter she will ff. their rules,per daughter george she wants her mother to go to different facility,[facility] and haris thompson notified,will continue to ff.up.
[2017-08-16] MEDS: HYDROCODONE/APAP 5/325MG 1 EACH TABLET PO PRN (11:25)
[2017-08-16 12:00] VITALS: BP 104/56
[2017-08-16 16:00] VITALS: BP 113/62
--- NOTE | 2017-08-16 18:24 | NUR ---
RT END OF THE SHIFT REPORT, PT. 82 Y OLD FEMALE REMAIN STABLE SINCE REC. 0700 AM. AWAKE, AND FOLLOWING COMMAND. MILTON'D EZE # 8 ON MECHANICAL VENT, WITH NOTED SIMV 6, 550, PS 12, FIO2 30%, PEEP+5 SETTINGS. EQUAL CHEST RISE NOTED, TRACH IN GOOD POSITION AND SECURE. JAVIER VENT WELL T/O DAY B/S RHONCHI BILATERALLY AND SUX'D FOR SMALL AMT OF WHITE SECRETIONS. VENT PLUGGED INTO RED OUTLET, AMBU BAG AT THE BEDSIDE. CONTINUE FOR CARE AND MONITORING, REPORT WILL PASS TO PM SHIFT. Addendum: 08/16/17 at 1826 by MAKAYLA AMIN RT Amended: Links added.
--- NOTE | 2017-08-16 19:12 | NUR ---
SUPERCALENDER OPERATOR NOTE: PATIENT IN BED, ASLEEP, AROUSABLE W/ TACTILE STIMULATION AND WHEN CALLING HER NAME. VENT-TRACH DEPENDENT SATURATING WELL 100%. PATIENT HAS NO IV LINE AN REFUSED TO GET ANOTHER IV LINE. HOB ELEVATED W/ GT FEEDING OF FIBERSOURCE@55CC/HR TOLERATING WELL. ON TRAVEL TICKETING REVIEWER, SR HR= 88. A CAREGIVER PROVIDED BY THE FAMILY PRESENT AT THE BEDSIDE. BULLARD CATHETER NOTED W/ YELLOW URINE DRAINING TO GRAVITY. BED ALARM AND LOCKED AT ALL TIMES. NEEDS ANTICIPATED. WILL REPORT TO PM SHIFT FOR CONTINUITY OF CARE.
[2017-08-16 20:00] VITALS: BP 107/73
--- NOTE | 2017-08-16 20:00 | NUR ---
TELE 1 RN NOTE PT IN BED AWAKE. NON VERBAL, BUT ABLE TO COMMUNICATE WITH FACIAL EXPRESSIONS. HAT PRESSER AT BED SIDE. ON VENT/TRACH TOLERATING THE SETTINGS WELL. SUCTIONED HER FREQUENTLY, THICK YELLOWISH SECRETIONS NOTED. ON TELE SR HR 89. NO DISTRESS OR DISCOMFORT NOTED. NO S/S OF PAIN NOTED. F/C INTACT AND PATENT DRAINING YELLOWISH COLOR URINE. ON GTF FIBERSOURCE 55 ML/HR, 0 ML RESIDUAL NOTED. KEPT HOB ELEVATED. REPOSITION HER FOR SKIN MANAGEMENT. SIDE RAILS UP X 3 AND CALL LIGHT WITHIN REACH. VSS. CONTINUE TO MONITOR.
[2017-08-16] MEDS: QUETIAPINE FUMARATE 100 MG TABLET PO SCH (21:13)
[2017-08-16] MEDS: FIBERSOURCE HN 1,000 ML BOTTLE GT PRN (22:09)
[2017-08-17] VITALS: BP 128/70
--- NOTE | 2017-08-17 01:48 | NUR ---
TELE 1 RN NOTE PT IN BED ASLEEP, NO DISTRESS OR DISCOMFORT NOTED. GTF INFUSING WELL, 0 ML RESIDUAL NOTED. REPOSITION HER Q2H, KEPT HER DRY AND CLEAN. ENDORSE TO NURSE JACKSON TO CONTINUE TO CARE AND ALSO TAKE WEEKLY SKIN PICTURES.
[2017-08-17 04:00] VITALS: BP 138/62
[2017-08-17] MEDS: LEVOTHYROXINE SODIUM 25 MCG TABLET GT SCH (05:05)
[2017-08-17] MEDS: clonazePAM 1 MG TABLET GT SCH ×3 (05:05→21:29)
--- NOTE | 2017-08-17 07:30 | NUR ---
INITIAL PT ON BED VENT/ TRACH DEPENDED DAUGHTER AT BEDSIDE ABLE TO INTERAQCT WITH DAUGHTER OPENS EYES. MOVE TO SIDE PT ST AT 105 ON MONITOR PT ON GTF FIBER SOURCE AT 60 MLS NO RESIDUAL PT HAS NO PIV. BED ALARMS ON AND IN LOW POSITION CALL GONZALES NEXT TO FAMILY.
--- NOTE | 2017-08-17 07:38 | NUR ---
RN NOTE NO CHANGES DURING MY SHIFT, NO RESPIRATORY DISTRESS NOTED, TOLERATES G-TUBE FEEDING WELL, DAY CARE ASSISTANT IS BY BEDSIDE, ALL SAFETY MEASURES TAKEN
[2017-08-17 08:00] VITALS: BP 119/51
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
--- NOTE | 2017-08-17 10:00 | NUR ---
CUSTODIAL SUPERVISOR NOTES RECEIVED REPORT FROM LENNY GALDAMEZ FOR [facility].
[2017-08-17] MEDS: NYSTATIN (PYXIS) 500,000 UNIT/5 ML ORAL.SUSP PO SCH ×4 (10:25→21:29)
[2017-08-17] MEDS: FUROSEMIDE 20 MG TABLET GT SCH (10:28)
[2017-08-17] MEDS: ASPIRIN EC 81 MG TABLET.DR PO SCH (10:28)
[2017-08-17] MEDS: busPIRone 5 MG TABLET GT SCH ×3 (10:28→17:30)
[2017-08-17] MEDS: ENOXAPARIN SODIUM 40 MG/0.4 ML DISP.SYRIN SQ SCH (10:29)
--- NOTE | 2017-08-17 10:30 | NUR ---
CUSTOMER SUCCESS ASSOCIATE NOTES PATIENT ON SHILEY # 8 ON MECHANICAL VENT, WITH NOTED SIMV 6, 550, PS 12, FIO2 30%, PEEP+5 SETTINGS.
[2017-08-17 12:00] VITALS: BP 125/56
[2017-08-17 16:00] VITALS: BP 109/52
[2017-08-17] MEDS: ACETAMINOPHEN 325 MG TABLET PO PRN ×2 (16:07→21:30)
--- NOTE | 2017-08-17 18:07 | NUR ---
HAULING CONTRACTOR NOTES PATIENT TO BE DISCHARGED TO [facility] PER MD IN STABLE CONDITION. PROVIDED DC INSTRUCTIONS, MED RECON LIST AND HEALTH TEACHINGS. NO IV ACCESS SINCE THIS AM. PATIENT TO FOLLOW UP WITH PCP IN 1 OR PER FACILITY PROTOCOL. PATIENT WITH BULLARD CATH IN PLACE, INTACT WITH 1500 ML OUTPUT. G TUBE IN PLACE, CDI DRESSING. PHOTOS OF SKIN ISSUES TAKEN EARLY THIS MORNING. ALL BELONGINGS CHECKED AND RETURNED. ALL PAPER WORKS SIGNED. REPORT GIVEN TO MONI AT FACILITY EARLIER. AMBULANCE PICKED UP SCHEDULED AT 1900 PER [facility] CASE MANAGEMENT.
--- NOTE | 2017-08-17 18:09 | NUR ---
RT END OF THE SHIFT REPORT, PT. 82 Y OLD FEMALE REMAIN STABLE SINCE REC. 0700 AM. AWAKE, AND FOLLOWING COMMAND. MILTON'D EZE # 8 ON MECHANICAL VENT, WITH NOTED SIMV 6, 550, PS 12, FIO2 30%, PEEP+5 SETTINGS. EQUAL CHEST RISE NOTED, TRACH IN GOOD POSITION AND SECURE. JAVIER VENT WELL T/O DAY B/S RHONCHI BILATERALLY AND SUX'D FOR SMALL AMT OF WHITE SECRETIONS. VENT PLUGGED INTO RED OUTLET, AMBU BAG AT THE BEDSIDE. CONTINUE FOR CARE AND MONITORING, REPORT WILL PASS TO PM SHIFT. Addendum: 08/17/17 at 1810 by MAKAYLA AMIN RT Amended: Links added.
[2017-08-17] MEDS: FIBERSOURCE HN 1,000 ML BOTTLE GT PRN (19:59)
[2017-08-17 20:00] VITALS: BP 101/44
[2017-08-17] MEDS: QUETIAPINE FUMARATE 100 MG TABLET PO SCH (21:29)
[2017-08-18] VITALS: BP 99/41
[2017-08-18 04:00] VITALS: BP 108/57
[2017-08-18] MEDS: LEVOTHYROXINE SODIUM 25 MCG TABLET GT SCH (05:11)
[2017-08-18] MEDS: clonazePAM 1 MG TABLET GT SCH ×3 (05:12→20:14)
--- NOTE | 2017-08-18 06:40 | NUR ---
RN NOTES, PATIENT SLEEPING ON BED, ON VENT SETTINGS, NO SOB/ACUTE DISTRESS NOTED AT THIS TIME, GTF INFUSING WELL AN PATIENT TOLERATED WELL, PATIENT IN STABLE CONDITION THOROUGH THE NIGHT, CAREGIVER AT BEDSIDE, ALL NEEDS PROVIDED, KEPT DRY AND CLEAN AND REPOSITION PROVIDED /PER PROTOCOL FOR PRESSURE RELIEF, BED LOCKED AND IN LOWEST POSITION, CALL LIGHT W/I REACH, WILL ENDORSE CONTINUITY OF CARE TO ONCOMING NURSE.
--- NOTE | 2017-08-18 07:30 | NUR ---
HAND CANDY CUTTER AM NOTES PATIENT IN BED, NON VERBAL, CAREGIVER AT BEDSIDE . AO X 1-2, ABLE TO NOD HEAD IN RESPONSE TO QUESTIONS, SHILEY 8 TRACH, SIMV, SETTINGS ORDERED, WELL TOLERATED, RESPIRATIONS EVEN AND UNLABORED. NO SOB NOTED. TELEMETRY READS SR HR 99, NO SIGNS OF PAIN OR DISCOMFORT, NO IV. MD AWARE. FIBERSOURCE FEEDING RUNNING AT 55 ML/HR, 0 RESIDUAL, PATIENT APPEARS CALM AT THIS TIME, BED IN LOW AND LOCKED POSITION, SIDE RAILS X2. CALL LIGHT WITHIN EASY REACH. ALL NEEDS ANTICIPATED, WILL TURN AND REPOSITION Q 2HOURS. WILL CONTINUE TO MONITOR.
[2017-08-18 08:00] VITALS: BP 112/63
[2017-08-18] MEDS: ASPIRIN EC 81 MG TABLET.DR PO SCH (09:00)
[2017-08-18] MEDS: busPIRone 5 MG TABLET GT SCH ×3 (09:00→16:23)
[2017-08-18] MEDS: NYSTATIN (PYXIS) 500,000 UNIT/5 ML ORAL.SUSP PO SCH ×3 (09:00→16:24)
[2017-08-18] MEDS: FUROSEMIDE 20 MG TABLET GT SCH (09:00)
[2017-08-18] MEDS: ENOXAPARIN SODIUM 40 MG/0.4 ML DISP.SYRIN SQ SCH (09:01)
[2017-08-18] MEDS: ACETAMINOPHEN 325 MG TABLET PO PRN ×2 (09:20→20:14)
--- NOTE | 2017-08-18 09:30 | NUR ---
BEEF GRADER NOTES DUE MEDS GIVEN
[2017-08-18 12:00] VITALS: BP 100/45
[2017-08-18 16:00] VITALS: BP 103/59
--- NOTE | 2017-08-18 16:52 | NUR ---
FOLDING MACHINE SETTER NOTES PER THIEN KRAMER, [facility], OKAYED BY DAUGHTER CON. REPORT GIVEN TO SAMIA AT FACILITY.
--- NOTE | 2017-08-18 17:38 | NUR ---
AWS SOFTWARE DEVELOPMENT ENGINEER NOTES PATIENT TO BE DISCHARGED TO [facility] PER MD IN STABLE CONDITION. PROVIDED DC INSTRUCTIONS, MED RECON LIST AND HEALTH TEACHINGS. NO IV ACCESS SINCE THIS AM. PATIENT TO FOLLOW UP WITH PCP IN 1 OR PER FACILITY PROTOCOL. PATIENT WITH BULLARD CATH IN PLACE, INTACT WITH 1200 ML OUTPUT. G TUBE IN PLACE, CDI DRESSING. PCG REFUSED PHOTOS OF SKIN ISSUES STATED THAT IT WAS TAKEN YESTERDAY AND WANTED ONLY TO DO PM CARE. ALL BELONGINGS CHECKED AND RETURNED. ALL PAPER WORKS SIGNED. REPORT GIVEN TO SAMIA GALDAMEZ AT FACILITY EARLIER. AMBULANCE PICKED UP SCHEDULED AT 1830 PER THIEN HERNANDEZ RNVTC TECHNICIAN.
--- NOTE | 2017-08-18 19:59 | NUR ---
ACID TANK CLEANER NOTES 19:30 RECEIVED REPORT FROM RUDOLPH FRIEND. PATIENT TO BE DISCHARGED 1954: TRANSPORTATION STAFF ARRIVED AMBULNZ. GAVE REPORT TO TRANSPORTATION STAFF. DAUGHTER AT BED SIDE. REMOVED CONTINUOUS PULSE OX. PATIENT WITH NO IV ACCESS AT THIS TIME. IN STABLE CONDITION. ON VENTILATOR. NO SIGNS OF DISTRESS. [facility] REPORT GIVEN TO DESTINATION FACILITY PER AM NURSE
== END 2017-08-18 21:32 | DRG 422 ==
LOC: ER 21:05 → TELE1 08-11 00:11 → MEDSG1 08-11 02:40 → TELE1 08-11 10:31 → TELE 08-18 16:12 → TELE1 08-18 16:17
PROVIDERS: ADMIT Nurse Practitioner Acute Care; ATTEND Nurse Practitioner Acute Care
PROC: 5A1955Z Respiratory Ventilation, Greater than 96 Consecutive Hours (ICD-10-PCS; principal; 2017-08-11)
DX: E86.0 Dehydration (principal); G93.40 Encephalopathy, unspecified; Z99.11 Dependence on respirator [ventilator] status; J96.11 Chronic respiratory failure with hypoxia; Z93.0 Tracheostomy status; R53.2 Functional quadriplegia; R13.10 Dysphagia, unspecified; D68.59 Other primary thrombophilia; E87.6 Hypokalemia; D63.8 Anemia in other chronic diseases classified elsewhere; F41.9 Anxiety disorder, unspecified; I10 Essential (primary) hypertension; I25.10 Atherosclerotic heart disease of native coronary artery without angina pectoris; K21.9 Gastro-esophageal reflux disease without esophagitis; F03.90 Unspecified dementia, unspecified severity, without behavioral disturbance, psychotic disturbance, mood disturbance, and anxiety; Z93.1 Gastrostomy status; L98.8 Other specified disorders of the skin and subcutaneous tissue
CPT/HCPCS: 31720; 36415; 36600; 70450-TC; 71045-TC; 74018; 80048-TC; 80061-TC; 80076-TC; 81000-TC; 82803-TC; 83605-TC; 83735-TC; 84100-TC; 84443-TC; 84484-TC; 85025-TC; 85730-TC; 87040-TC; 87081-TC; 87086-TC; 94003-TC; 94760-TC; 94762-TC; A4606; J1650; J2060; J7030; J7040; Z7610